=== PATIENT | male | born 1985 | race Caucasian/White ===

== ENCOUNTER 2017-07-17 11:53 | Emergency (ER) | payer OTHER ==
[2017-07-17] MEDS: DIPHTH/TET/ACEL PERTUSS (ADULT) 0.5 ML VIAL IM* (12:14)
== END 2017-07-17 12:27 | disposition home or self-care (01) ==
LOC: FTE 11:53
DX: S61.411A Laceration without foreign body of right hand, initial encounter (principal); V89.2XXA Person injured in unspecified motor-vehicle accident, traffic, initial encounter
CPT/HCPCS: 99282